=== PATIENT | male | born 1995 | race African-American/Black ===

== ENCOUNTER 2018-01-26 12:10 | Emergency (ER) | payer MEDICAID ==
[~2018-01-26] VITALS: Ht 185.4 cm; Wt 113.9 kg
[~2018-01-26 12:10] MED LIST: INSULIN PUMP SQ
[2018-01-26 12:13] VITALS: BP 145/81
[2018-01-26] MEDS ORDERED: hydrOXyzine 50MG TABLET ONE (13:17)
[2018-01-26 13:40] LABS: ANION GAP 5 mmol/L (5-15); CALCIUM 8.9 mg/dL (8.5-10.1); CHLORIDE 108 mmol/L (98-107); CREATININE 0.78 mg/dL (0.7-1.3)
== END 2018-01-26 14:05 | disposition home or self-care (01) ==
LOC: ED 13:05
DX: F32.9 Major depressive disorder, single episode, unspecified (principal); F41.1 Generalized anxiety disorder
CPT/HCPCS: 36415; 80048; 99284; Q0177

== ENCOUNTER 2018-02-06 11:55 | Emergency (ER) | payer MEDICAID ==
[~2018-02-06] VITALS: Ht 185.4 cm; Wt 113.5 kg
[2018-02-06] MEDS ORDERED: VORT10TA PO (12:38)
[2018-02-06] MEDS ORDERED: LEVE500T8 PO (12:39)
[2018-02-06] MEDS ORDERED: RED600CA2 PO (12:40)
[2018-02-06 13:38] VITALS: BP 131/77
== END 2018-02-06 13:40 | disposition home or self-care (01) ==
LOC: ED 12:40
DX: F41.1 Generalized anxiety disorder (principal); E11.9 Type 2 diabetes mellitus without complications
CPT/HCPCS: 99284; Q0177

== ENCOUNTER 2019-06-18 11:09 | Emergency (ER) | payer MEDICAID ==
[~2019-06-18] VITALS: Ht 185.4 cm; Wt 115.7 kg
[~2019-06-18 11:09] MED LIST changes: +HYDR50TA13 PO; +INSU100I34 SC; +LEVE500T8 PO; +RED600CA2 PO; +VORT10TA PO; +VORTIOXETINE PO
[2019-06-18 11:11] VITALS: BP 127/78
== END 2019-06-18 12:28 | disposition home or self-care (01) ==
LOC: ED 11:34
DX: J30.2 Other seasonal allergic rhinitis (principal); E11.9 Type 2 diabetes mellitus without complications
CPT/HCPCS: 71046; 99283

== ENCOUNTER 2019-06-20 14:52 | Emergency (ER) | payer MEDICAID ==
[~2019-06-20] VITALS: Ht 185.4 cm; Wt 116.0 kg
[2019-06-20 15:49] LABS: BASOPHILS # (AUTO) 0.02 x10^3/uL (0-0.1); BASOPHILS % (AUTO) 0 % (0-1); EOSINOPHILS # (AUTO) 0.38 x10^3/uL (0-0.4); EOSINOPHILS % (AUTO) 6 % (1-7); LYMPHOCYTES # (AUTO) 1.71 x10^3/uL (1-3.4); LYMPHOCYTES % (AUTO) 26 % (22-44); MD NO; MEAN CORPUSCULAR HEMOGLOBIN 30.7 pg (27.5-34.5); MEAN CORPUSCULAR HGB CONC 33.2 g/dL (33.2-36.2); MEAN CORPUSCULAR VOLUME 92.4 fL (81-97); MONOCYTES # (AUTO) 0.44 x10^3/uL (0.2-0.8); MONOCYTES % (AUTO) 7 % (2-9); NEUTROPHILS # (AUTO) 4.12 x10^3/uL (1.8-6.8); NEUTROPHILS % (AUTO) 62 % (42-75); PLATELET COUNT 182 x10^3/uL (130-400); RED BLOOD COUNT 4.75 x10^6/uL (4.38-5.82); RED CELL DISTRIBUTION WIDTH 13.8 % (9.4-14.8)
--- NOTE | 2019-06-20 15:58 | NUR ---
REPORT FROM BERTHA MIXON. PT TRANSFERRED TO [facility].
[2019-06-20 16:08] LABS: ALBUMIN 3.7 g/dL (3.4-5.0); ANION GAP 3 mmol/L (5-15); CALCIUM 9.1 mg/dL (8.5-10.1); CHLORIDE 109 mmol/L (98-107); CREATININE 0.92 mg/dL (0.7-1.3)
[2019-06-20 16:10] LABS: SALICYLATE LEVEL < 1.7 mg/dL (2.8-20.0)
[2019-06-20 16:15] LABS: AMPHETAMINE SCREEN, URINE Negative (Negative); BARBITURATE SCREEN, URINE Negative (Negative); BENZODIAZEPINE SCREEN, URINE Negative (Negative); CANNABINOID SCREEN, URINE Negative (Negative); COCAINE SCREEN, URINE Negative (Negative); METHADONE SCREEN, URINE Negative (Negative); OPIATE SCREEN, URINE Negative (Negative)
--- NOTE | 2019-06-20 17:05 | NUR ---
PT SITTING UP IN BED. DENIES ANY NEEDS OR CONCERNS. SITTER CONTINUES IN DIRECT LINE OF SIGHT.
[2019-06-20 17:51] VITALS: BP 131/80
== END 2019-06-20 18:11 | disposition home or self-care (01) ==
LOC: ED 18:00
DX: J30.2 Other seasonal allergic rhinitis (principal); R06.00 Dyspnea, unspecified; E11.9 Type 2 diabetes mellitus without complications; F41.1 Generalized anxiety disorder; F32.9 Major depressive disorder, single episode, unspecified; N28.9 Disorder of kidney and ureter, unspecified
CPT/HCPCS: 36415; 71046; 80048; 80307; 82040; 85025; 85379; 99284

== ENCOUNTER 2020-05-16 19:21 | Emergency (ER) | payer MEDICAID ==
[~2020-05-16] VITALS: Ht 185.4 cm; Wt 123.7 kg
[~2020-05-16 19:21] MED LIST changes: -HYDR50TA13 PO; +HYDR50TA99 PO
--- NOTE | 2020-05-16 19:58 | NUR ---
JUNIOR ACCOUNTANT BOOKKEEPER: PT AMBULATORY TO ROOM WITH STEADY GAIT AT THIS TIME WITH NURSES' [employer]IATION COUNSELOR.
[2020-05-16] MEDS ORDERED: LEVETIRACETAM 500 MG TABLET ONE (20:13)
--- NOTE | 2020-05-16 20:15 | NUR ---
Break RN:pt medicated with keppra. Pt resting with no needs. vss. report to Divya STONE
[2020-05-16 20:19] VITALS: BP 118/76
[2020-05-16] MEDS ORDERED: LEVETIRACETAM 500 MG TABLET PO ONE (20:30)
--- NOTE | 2020-05-16 20:39 | NUR ---
Patient given discharge instructions and they have confirmed that they understand the instructions. Patient ambulatory with steady gait.
== END 2020-05-16 20:41 | disposition home or self-care (01) ==
LOC: ED 20:35
DX: S00.512A Abrasion of oral cavity, initial encounter (principal); R56.9 Unspecified convulsions; R00.0 Tachycardia, unspecified; X58.XXXA Exposure to other specified factors, initial encounter; Y93.89 Activity, other specified; Y92.89 Other specified places as the place of occurrence of the external cause; Y99.8 Other external cause status
CPT/HCPCS: 93005; 99283; 99284